=== PATIENT | female | born 1980 | race Caucasian/White ===

== ENCOUNTER 2021-04-17 03:05 | Emergency (ER) | payer MEDICARE ==
[~2021-04-17] VITALS: Ht 157.5 cm; Wt 131.5 kg
[2021-04-17 03:40] LABS: BASOPHILS # (AUTO) 0.1 (0.0-0.1); BASOPHILS % 0.6 % (0.0-1.0); EOSINOPHILS # (AUTO) 0.2 (0.0-0.4); EOSINOPHILS % 2.2 % (0.0-6.0); HEMATOCRIT 40.5 % (34.2-44.1); HEMOGLOBIN 13.5 g/dL (12.0-16.0); LYMPHOCYTES % 23.2 % (18.0-39.1); MEAN CORPUSCULAR HEMOGLOBIN 31.3 pg (28-32); MEAN CORPUSCULAR HGB CONC 33.3 g/dL (31-35); MONOCYTES # (AUTO) 0.5 (0.2-0.8); MONOCYTES % 5.3 % (4.4-11.3); NEUTROPHILS # (AUTO) 5.8 (2.1-6.9); NEUTROPHILS % 68.1 % (38.7-80.0); PLATELET COUNT 180 x10e3/uL (140-360); RED BLOOD COUNT 4.31 x10e6/uL (3.6-5.1); RED CELL DISTRIBUTION WIDTH 13.2 % (11.7-14.4)
[2021-04-17 03:58] LABS: ALANINE AMINOTRANSFERASE 51 IU/L (0-55); ALBUMIN 3.8 g/dL (3.5-5.0); ALKALINE PHOSPHATASE 161 IU/L (40-150); ANION GAP 18.3 mmol/L (8-16); BLOOD UREA NITROGEN 9 mg/dL (7-26); BUN/CREATININE RATIO 8 (6-25); CALCIUM 9.1 mg/dL (8.4-10.2); CARBON DIOXIDE 21 mmol/L (22-29); CHLORIDE 112 mmol/L (98-107); CREATINE KINASE 100 IU/L (29-168); CREATININE, SERUM 1.19 mg/dL (0.57-1.11); EST GLOMERULAR FILTRATION RATE 50 ML/MIN (60-); GLUCOSE 189 mg/dL (74-118); POTASSIUM 3.3 mmol/L (3.5-5.1); SODIUM 148 mmol/L (136-145)
== END 2021-04-17 05:42 | disposition home or self-care (01) ==
LOC: ER 03:36
DX: F10.129 Alcohol abuse with intoxication, unspecified (principal); E11.65 Type 2 diabetes mellitus with hyperglycemia; G47.30 Sleep apnea, unspecified; Z85.6 Personal history of leukemia; Z94.81 Bone marrow transplant status; Z98.84 Bariatric surgery status
CPT/HCPCS: 36415; 80053; 80320; 82550; 82553; 84484; 85025; 99283